=== PATIENT | male | born 1985 | race Caucasian/White ===

== ENCOUNTER 2021-05-12 12:39 | Observation (INO) | payer SELFPAY ==
[2021-05-12] MEDS ORDERED: Sodium Chloride 0.9% 10 ML Syringe FLUSH PRN (12:43)
[2021-05-12] MEDS ORDERED: Sodium Chloride 0.9% 1,000 ML IV SCH (12:45)
[2021-05-12] MEDS ORDERED: MVI, Adult with Vitamin K 10 ML, Thiamine 100 MG, Folic Acid 1 MG, Magnesium Sulfate 3 ... IV SCH ×5 (12:45)
--- NOTE | 2021-05-12 13:20 | EDM.PDOCBH ---
ED HPI GENERAL MEDICAL PROBLEM - General Chief Complaint: Drug or Alcohol Abuse Stated Complaint: ETOH INTOXICATION Time Seen by Provider: 05/12/21 12:45 Source of Information: Reports: Patient, EMS, EMS Notes Reviewed, RN Notes Reviewed History Limitations: Reports: No Limitations - History of Present Illness INITIAL COMMENTS - FREE TEXT/NARRATIVE: This patient presents to the emergency department via EMS for intoxication. He states he has been drinking most of the last 15 years on a daily basis. 3 weeks ago he quit for 4 days and has been drinking all day every day since that time. He has been going through about 1.5 L of vodka per day. He states he woke up this morning and felt like he needed help and does not want to live the way he has been so called for help through 911. On arrival to the emergency department he is disheveled, unkempt, and quite intoxicated although alert and oriented. His speech is clear. He denies other concerns or complaints. He denies other drug ingestions. He denies any suicidal attempts. Bilateral Abdominal Pain Score (Numeric/FACES): 3 - Related Data Allergies Allergy/AdvReac Type Severity Reaction Status Date / Time No Known Allergies Allergy Verified 01/30/21 11:54 Social & Family History - Alcohol Use Days Per Week of Alcohol Use: 7 Number of Drinks Per Day: 10 Total Drinks Per Week: 70 - Recreational Drug Use Recreational Drug Use: Yes Recreational Drug Type: Reports: Marijuana/Hashish Recreational Drug Use Frequency: Daily ED ROS GENERAL - Review of Systems Review Of Systems: See Below Constitutional: Reports: Decreased Appetite. Denies: Fever, Chills, Malaise, Weakness, Fatigue HEENT: Denies: Ear Pain, Eye Pain, Rhinitis, Throat Pain Respiratory: Denies: Shortness of Breath, Cough Cardiovascular: Reports: Palpitations. Denies: Chest Pain, Dyspnea on Exertion, Lightheadedness GI/Abdominal: Reports: Decreased Appetite. Denies: Abdominal Pain, Diarrhea, Nausea, Vomiting Musculoskeletal: Reports: No Symptoms Skin: Reports: No Symptoms Neurological: Reports: Tremors. Denies: Trouble Speaking, Gait Disturbance Psychiatric: Reports: Depression ED EXAM, BEHAVIORAL HEALTH - Physical Exam Exam: See Below Exam Limited By: Intoxication General Appearance: Alert, Anxious, Mild Distress Eye Exam: Bilateral Eye: Nystagmus, PERRL Ears: Normal External Exam Nose: Normal Inspection Throat/Mouth: Normal Inspection Head: Atraumatic, Normocephalic Neck: Normal Inspection, Full Range of Motion Respiratory/Chest: No Respiratory Distress, Lungs Clear, Normal Breath Sounds, No Accessory Muscle Use Cardiovascular: Regular Rate, Rhythm GI/Abdominal: Soft, Non-Tender, No Organomegaly, No Distention, Abnormal Bowel Sounds (Hypoactive in all quadrants) Extremities: Normal Inspection. No: Pedal Edema Neurological: Alert, Oriented x 3, Abnormal Gait, Opens Eyes to Commands Psychiatric: Alert, Oriented, Depressed Mood, Flat Affect Skin Exam: Warm, Dry, Intact, No rash, Other (Gold complexion) COURSE, BEHAVIORAL HEALTH COMP - Course Vital Signs: Last Vital Signs Temp 37.5 C 05/12/21 12:53 Pulse 106 H 05/12/21 12:53 Resp 16 05/12/21 12:53 BP 146/103 H 05/12/21 12:53 Pulse Ox 96 05/12/21 14:42 Orders, Labs, Meds: Active Orders 24 hr Category Date Time Status MVI, Adult with Vitamin K [Infuvite Adult] 10 ml Med 05/12/21 12:45 Active Thiamine [Vitamin B-1] 100 mg Folic Acid 1 mg Magnesium Sulfate [Magnesium Sulfate 50%] 3 gm Sodium Chloride 0.9% [Normal Saline] 1,000 ml IV ASDIRECTED Sodium Chloride 0.9% [Normal Saline] 1,000 ml Med 05/12/21 12:45 Active IV ASDIRECTED Sodium Chloride 0.9% [Saline Flush] Med 05/12/21 12:43 Active 10 ml FLUSH ASDIRECTED PRN Saline Lock Insert [OM.PC] Routine Oth 05/12/21 12:43 Ordered Medication Orders Acetaminophen (Acetaminophen 325 Mg Tab) 650 mg PO Q4H PRN PRN Reason: Pain (Mild 1-3)/fever Sodium Chloride (Normal Saline) 1,000 mls @ 999 mls/hr IV ASDIRECTED VERONIKA Last Admin: 05/12/21 12:49 Dose: 999 mls/hr Documented by: LIBAN Multivitamins/Minerals 10 ml/Thiamine HCl 100 mg/ Folic Acid 1 mg/ Magnesium Sulfate 3 gm/ Sodium Chloride 1,017.2 mls @ 999 mls/hr IV ASDIRECTED VERONIKA Last Admin: 05/12/21 14:05 Dose: 999 mls/hr Documented by: LIBAN Lorazepam (Lorazepam 2 Mg/Ml Sdv) 2 mg IVPUSH Q4H PRN PRN Reason: Withdrawal Symptoms Last Admin: 05/12/21 15:09 Dose: 2 mg Documented by: LIBAN Lorazepam (Lorazepam 2 Mg/Ml Sdv) 1 mg IV Q2H PRN PRN Reason: Nausea/Vomiting Ondansetron HCl (Ondansetron 4 Mg/2 Ml Sdv) 4 mg IVPUSH Q4H PRN PRN Reason: Nausea/Vomiting Last Admin: 05/12/21 15:04 Dose: 4 mg Documented by: LIBAN Ondansetron HCl (Ondansetron 4 Mg/2 Ml Sdv) 4 mg IV Q4H PRN PRN Reason: Nausea/Vomiting Sodium Chloride (Sodium Chloride 0.9% 10 Ml Syringe) 10 ml FLUSH ASDIRECTED PRN PRN Reason: Keep Vein Open Laboratory Tests 05/12/21 05/12/21 05/12/21 Range/Units 12:43 12:45 12:45 WBC 5.7 (4.0-11.0) K/uL RBC 4.72 (4.50-6.50) M/uL Hgb 15.7 (13.0-18.0) g/dL Hct 44.6 (40.0-54.0) % MCV 95 (76-96) fL MCH 33.3 H (27.0-32.0) pg MCHC 35.2 H (31.0-35.0) g/dL RDW 14.7 (11.0-16.0) % Plt Count 197 (150-400) K/uL MPV 9.1 (6.0-10.0) fL Neut % (Auto) 42.4 L (45.0-70.0) % Lymph % (Auto) 46.7 H (20.0-40.0) % [place] % (Auto) 8.9 (3.0-10.0) % Eos % (Auto) 0.4 L (1.0-5.0) % Baso % (Auto) 1.6 H (0.0-0.5) % Neut # (Auto) 2.42 (2.00-7.50) K/uL Lymph # (Auto) 2.66 (1.50-4.00) K/uL [place] # (Auto) 0.51 (0.20-0.80) K/uL Eos # (Auto) 0.02 L (0.04-0.40) K/uL Baso # (Auto) 0.09 (0.02-0.10) K/uL Sodium 143 (136-145) mmol/L Potassium 2.9 L* (3.5-5.1) mmol/L Chloride 99 (98-107) mmol/L Carbon Dioxide 26.8 (21.0-32.0) mmol/L Anion Gap 20.1 H (5.0-15.0) mmol/L BUN 4 L (8-26) mg/dL Creatinine 0.92 (0.70-1.30) mg/dL Est Cr Clr Drug Dosing 119.36 mL/min Estimated GFR (MDRD) > 60 (>60) MLS/MIN BUN/Creatinine Ratio 4.3 L (6-25) Glucose 143 H (74-100) mg/dL Calcium 8.6 (8.5-10.1) mg/dL Total Bilirubin 1.4 H (0.0-1.0) mg/dL AST 62 H (15-37) U/L ALT 54 (12-78) U/L Alkaline Phosphatase 68 (46-116) U/L Total Protein 8.0 (6.4-8.2) g/dL Albumin 4.1 (3.4-5.0) g/dL Globulin 3.9 (2.2-4.2) g/dL Albumin/Globulin Ratio 1.1 (0.8-2.0) Lipase 403 H (73-393) U/L Ethyl Alcohol 403.0 H* (<3.0) mg/dL SARS-CoV-2 RNA (PER) (NEGATIVE) 05/12/21 Range/Units 12:50 WBC (4.0-11.0) K/uL RBC (4.50-6.50) M/uL Hgb (13.0-18.0) g/dL Hct (40.0-54.0) % MCV (76-96) fL MCH (27.0-32.0) pg MCHC (31.0-35.0) g/dL RDW (11.0-16.0) % Plt Count (150-400) K/uL MPV (6.0-10.0) fL Neut % (Auto) (45.0-70.0) % Lymph % (Auto) (20.0-40.0) % [place] % (Auto) (3.0-10.0) % Eos % (Auto) (1.0-5.0) % Baso % (Auto) (0.0-0.5) % Neut # (Auto) (2.00-7.50) K/uL Lymph # (Auto) (1.50-4.00) K/uL [place] # (Auto) (0.20-0.80) K/uL Eos # (Auto) (0.04-0.40) K/uL Baso # (Auto) (0.02-0.10) K/uL Sodium (136-145) mmol/L Potassium (3.5-5.1) mmol/L Chloride (98-107) mmol/L Carbon Dioxide (21.0-32.0) mmol/L Anion Gap (5.0-15.0) mmol/L BUN (8-26) mg/dL Creatinine (0.70-1.30) mg/dL Est Cr Clr Drug Dosing mL/min Estimated GFR (MDRD) (>60) MLS/MIN BUN/Creatinine Ratio (6-25) Glucose (74-100) mg/dL Calcium (8.5-10.1) mg/dL Total Bilirubin (0.0-1.0) mg/dL AST (15-37) U/L ALT (12-78) U/L Alkaline Phosphatase (46-116) U/L Total Protein (6.4-8.2) g/dL Albumin (3.4-5.0) g/dL Globulin (2.2-4.2) g/dL Albumin/Globulin Ratio (0.8-2.0) Lipase (73-393) U/L Ethyl Alcohol (<3.0) mg/dL SARS-CoV-2 RNA (PER) Negative (NEGATIVE) Medications Generic Name Dose Route Start Last Admin Trade Name Freq PRN Reason Stop Dose Admin Acetaminophen 650 mg 05/12/21 14:41 Acetaminophen 325 Mg Tab PO Q4H PRN Pain (Mild 1-3)/fever Sodium Chloride 1,000 mls @ 999 mls/hr 12/07/21 12:45 05/12/21 12:49 Normal Saline IV 999 mls/hr ASDIRECTED VERONIKA Administration Multivitamins/Minerals 10 ml/ 1,017.2 mls @ 999 mls/hr 05/12/21 12:45 05/12/21 14:05 Thiamine HCl 100 mg/ Folic IV 999 mls/hr Acid 1 mg/ Magnesium Sulfate 3 ASDIRECTED VERONIKA Administration gm/ Sodium Chloride Lorazepam 2 mg 05/12/21 14:33 05/12/21 15:09 Lorazepam 2 Mg/Ml Sdv IVPUSH 2 mg Q4H PRN Administration Withdrawal Symptoms Lorazepam 1 mg 05/12/21 14:41 Lorazepam 2 Mg/Ml Sdv IV Q2H PRN Nausea/Vomiting Ondansetron HCl 4 mg 05/12/21 14:34 05/12/21 15:04 Ondansetron 4 Mg/2 Ml Sdv IVPUSH 4 mg Q4H PRN Administration Nausea/Vomiting Ondansetron HCl 4 mg 05/12/21 14:41 Ondansetron 4 Mg/2 Ml Sdv IV Q4H PRN Nausea/Vomiting Sodium Chloride 10 ml 05/12/21 12:43 Sodium Chloride 0.9% 10 Ml Syringe FLUSH ASDIRECTED PRN Keep Vein Open Discontinued Medications Generic Name Dose Route Start Last Admin Trade Name Freq PRN Reason Stop Dose Admin Potassium Chloride 40 meq 05/12/21 13:28 05/12/21 13:53 Potassium Chloride 20 Meq Tab.Er PO 05/12/21 13:29 40 meq ONETIME ONE Administration Departure - Departure Time of Disposition: 13:00 Disposition: DC/Tfer to Hospice - Home 50 Condition: Fair Clinical Impression: Alcohol withdrawal, Acute alcohol intoxication - Discharge Information Sepsis Event Note (ED) - Evaluation Sepsis Screening Result: No Definite Risk - Focused Exam Vital Signs: Vital Signs Temp Pulse Resp BP Pulse Ox 05/12/21 12:53 37.5 C 106 H 16 146/103 H 98 - My Orders Last 24 Hours: My Active Orders 05/12/21 12:43 Sodium Chloride 0.9% [Saline Flush] 10 ml FLUSH ASDIRECTED PRN Saline Lock Insert [OM.PC] Routine 05/12/21 12:45 MVI, Adult with Vitamin K [Infuvite Adult] 10 ml Thiamine [Vitamin B-1] 100 mg Folic Acid 1 mg Magnesium Sulfate [Magnesium Sulfate 50%] 3 gm Sodium Chloride 0.9% [Normal Saline] 1,000 ml IV ASDIRECTED Sodium Chloride 0.9% [Normal Saline] 1,000 ml IV ASDIRECTED - Assessment/Plan Last 24 Hours: My Active Orders 05/12/21 12:43 Sodium Chloride 0.9% [Saline Flush] 10 ml FLUSH ASDIRECTED PRN Saline Lock Insert [OM.PC] Routine 05/12/21 12:45 MVI, Adult with Vitamin K [Infuvite Adult] 10 ml Thiamine [Vitamin B-1] 100 mg Folic Acid 1 mg Magnesium Sulfate [Magnesium Sulfate 50%] 3 gm Sodium Chloride 0.9% [Normal Saline] 1,000 ml IV ASDIRECTED Sodium Chloride 0.9% [Normal Saline] 1,000 ml IV ASDIRECTED
[2021-05-12] MEDS ORDERED: Potassium Chloride 20 MEQ Tab.ER PO ONE (13:28)
[2021-05-12] MEDS ORDERED: Acetaminophen 325 MG Tab PO PRN (14:41)
[2021-05-12] MEDS ORDERED: LORazepam 2 MG/ML SDV IV PRN (14:41)
[2021-05-12] MEDS ORDERED: Ondansetron 4 MG/2 ML SDV IV PRN (14:41)
[2021-05-12] MEDS: Ondansetron 4 MG/2 ML SDV IVPUSH PRN (15:04)
[2021-05-12] MEDS: LORazepam 2 MG/ML SDV IVPUSH PRN ×2 (15:09→20:10)
--- NOTE | 2021-05-12 19:02 | PCM.HP.2 ---
H&P History of Present Illness - General Date of Service: 05/12/21 Admit Problem/Dx: Admission Diagnosis/Problem Admission Diagnosis/Problem Alcohol withdrawal syndrome Source of Information: Patient, RN Notes Reviewed History Limitations: Reports: No Limitations - History of Present Illness Initial Comments - Free Text/Narative: This patient was admitted from the ER for alcohol intoxication and potential for acute withdrawal. His blood alcohol in the ED was 0.403 he does have a history of having some issues with withdrawal. He does have a low potassium of 2.9 and was treated with oral potassium for this. Patient states he wants to stop drinking and is interested in learning about treatment options. This can be discussed with him tomorrow. He has been started on Ativan and Zofran as well as IV fluids to mitigate the potential for withdrawal symptoms. Bilateral Abdominal Pain Score (Numeric/FACES): 3 - Related Data Allergies/Adverse Reactions: Allergies Allergy/AdvReac Type Severity Reaction Status Date / Time No Known Allergies Allergy Verified 01/30/21 11:54 Home Medications: Home Meds NK [No Known Home Meds] 05/12/21 [History] Past Medical History Psychiatric History: Reports: Depression - Infectious Disease History Infectious Disease History: Reports: None Social & Family History - Family History Family Medical History: No Pertinent Family History - Tobacco Use Tobacco Use Status *Q: Never Tobacco User - Caffeine Use Caffeine Use: Reports: Soda - Alcohol Use Days Per Week of Alcohol Use: 7 Number of Drinks Per Day: 15 Total Drinks Per Week: 105 Date of Last Drink: 05/12/21 Time of Last Drink: 12:30 - Recreational Drug Use Recreational Drug Use: Yes Drug Use in Last 12 Months: Yes Recreational Drug Type: Reports: Marijuana/Hashish Other Recreational Drug Type: would use hourly if he could Recreational Drug Use Frequency: Daily H&P Review of Systems - Review of Systems: Review Of Systems: See Below General: Reports: Decreased Appetite. Denies: Fever, Weakness, Fatigue HEENT: Reports: No Symptoms Pulmonary: Denies: Shortness of Breath, Cough Cardiovascular: Denies: Chest Pain, Palpitations Gastrointestinal: Denies: Abdominal Pain, Diarrhea, Decreased Appetite, Nausea, Vomiting Musculoskeletal: Reports: No Symptoms Skin: Reports: No Symptoms Psychiatric: Reports: No Symptoms Neurological: Reports: No Symptoms (He got the banana bag a while ago) Exam - Exam Exam: See Below - Vital Signs Vital Signs: Last Vital Signs Temp 37.2 C 05/12/21 16:00 Pulse 102 H 05/12/21 16:00 Resp 18 05/12/21 16:00 BP 143/99 H 05/12/21 16:00 Pulse Ox 98 05/12/21 16:00 Weight: 108.046 kg - Exam Quality Assessment: No: Supplemental Oxygen General: Alert, Oriented, Mild Distress HEENT: PERRLA, Conjunctiva Clear, EACs Clear, EOMI, Mucosa Moist & [place], Nares Patent, Posterior Pharynx Clear, Pupils Equal, Pupils Reactive Neck: Supple, Trachea Midline Lungs: Clear to Auscultation, Normal Respiratory Effort Cardiovascular: Regular Rate, Regular Rhythm GI/Abdominal Exam: Normal Bowel Sounds, Soft, Non-Tender, No Organomegaly, No Distention Extremities: Normal Capillary Refill Skin: Warm, Dry, Intact Neurological: Cranial Nerves Intact, Normal Speech Neuro Extensive - Mental Status: Alert, Oriented x3 Psychiatric: Alert, Depressed - Patient Data Lab Results Last 24 hrs: Laboratory Results - last 24 hr 05/12/21 05/12/21 05/12/21 Range/Units 12:43 12:45 12:45 WBC 5.7 (4.0-11.0) K/uL RBC 4.72 (4.50-6.50) M/uL Hgb 15.7 (13.0-18.0) g/dL Hct 44.6 (40.0-54.0) % MCV 95 (76-96) fL MCH 33.3 H (27.0-32.0) pg MCHC 35.2 H (31.0-35.0) g/dL RDW 14.7 (11.0-16.0) % Plt Count 197 (150-400) K/uL MPV 9.1 (6.0-10.0) fL Neut % (Auto) 42.4 L (45.0-70.0) % Lymph % (Auto) 46.7 H (20.0-40.0) % [place] % (Auto) 8.9 (3.0-10.0) % Eos % (Auto) 0.4 L (1.0-5.0) % Baso % (Auto) 1.6 H (0.0-0.5) % Neut # (Auto) 2.42 (2.00-7.50) K/uL Lymph # (Auto) 2.66 (1.50-4.00) K/uL [place] # (Auto) 0.51 (0.20-0.80) K/uL Eos # (Auto) 0.02 L (0.04-0.40) K/uL Baso # (Auto) 0.09 (0.02-0.10) K/uL Sodium 143 (136-145) mmol/L Potassium 2.9 L* (3.5-5.1) mmol/L Chloride 99 (98-107) mmol/L Carbon Dioxide 26.8 (21.0-32.0) mmol/L Anion Gap 20.1 H (5.0-15.0) mmol/L BUN 4 L (8-26) mg/dL Creatinine 0.92 (0.70-1.30) mg/dL Est Cr Clr Drug Dosing 119.36 mL/min Estimated GFR (MDRD) > 60 (>60) MLS/MIN BUN/Creatinine Ratio 4.3 L (6-25) Glucose 143 H (74-100) mg/dL Calcium 8.6 (8.5-10.1) mg/dL Total Bilirubin 1.4 H (0.0-1.0) mg/dL AST 62 H (15-37) U/L ALT 54 (12-78) U/L Alkaline Phosphatase 68 (46-116) U/L Total Protein 8.0 (6.4-8.2) g/dL Albumin 4.1 (3.4-5.0) g/dL Globulin 3.9 (2.2-4.2) g/dL Albumin/Globulin Ratio 1.1 (0.8-2.0) Lipase 403 H (73-393) U/L Urine Color Urine Appearance (CLEAR) Urine pH (5.0-8.0) Ur Specific [place] (1.003-1.030) Urine Protein (NEGATIVE) mg/dL Urine Glucose (UA) (NEGATIVE) mg/dL Urine Ketones (NEGATIVE) mg/dL Urine Occult Blood (NEGATIVE) Urine Nitrite (NEGATIVE) Urine Bilirubin (NEGATIVE) Urine Urobilinogen (0.2-1.0) E.U./dL Ur Leukocyte Esterase (NEGATIVE) Urine Opiates Screen (NEGATIVE) Ur Oxycodone Screen (NEGATIVE) Urine Methadone Screen (NEGATIVE) Ur Barbiturates Screen (NEGATIVE) Ur Tricyclics Screen (NEGATIVE) Ur Phencyclidine Scrn (NEGATIVE) Ur Amphetamine Screen (NEGATIVE) U Methamphetamines Scrn (NEGATIVE) Urine MDMA Screen (NEGATIVE) U Benzodiazepines Scrn (NEGATIVE) U Cocaine Metab Screen (NEGATIVE) U Marijuana (THC) Screen (NEGATIVE) Ethyl Alcohol 403.0 H* (<3.0) mg/dL SARS-CoV-2 RNA (PER) (NEGATIVE) 05/12/21 05/12/21 05/12/21 Range/Units 12:50 15:00 15:18 WBC (4.0-11.0) K/uL RBC (4.50-6.50) M/uL Hgb (13.0-18.0) g/dL Hct (40.0-54.0) % MCV (76-96) fL MCH (27.0-32.0) pg MCHC (31.0-35.0) g/dL RDW (11.0-16.0) % Plt Count (150-400) K/uL MPV (6.0-10.0) fL Neut % (Auto) (45.0-70.0) % Lymph % (Auto) (20.0-40.0) % [place] % (Auto) (3.0-10.0) % Eos % (Auto) (1.0-5.0) % Baso % (Auto) (0.0-0.5) % Neut # (Auto) (2.00-7.50) K/uL Lymph # (Auto) (1.50-4.00) K/uL [place] # (Auto) (0.20-0.80) K/uL Eos # (Auto) (0.04-0.40) K/uL Baso # (Auto) (0.02-0.10) K/uL Sodium (136-145) mmol/L Potassium (3.5-5.1) mmol/L Chloride (98-107) mmol/L Carbon Dioxide (21.0-32.0) mmol/L Anion Gap (5.0-15.0) mmol/L BUN (8-26) mg/dL Creatinine (0.70-1.30) mg/dL Est Cr Clr Drug Dosing mL/min Estimated GFR (MDRD) (>60) MLS/MIN BUN/Creatinine Ratio (6-25) Glucose (74-100) mg/dL Calcium (8.5-10.1) mg/dL Total Bilirubin (0.0-1.0) mg/dL AST (15-37) U/L ALT (12-78) U/L Alkaline Phosphatase (46-116) U/L Total Protein (6.4-8.2) g/dL Albumin (3.4-5.0) g/dL Globulin (2.2-4.2) g/dL Albumin/Globulin Ratio (0.8-2.0) Lipase (73-393) U/L Urine Color Yellow Urine Appearance Clear (CLEAR) Urine pH 8.5 H (5.0-8.0) Ur Specific [place] 1.020 (1.003-1.030) Urine Protein Negative (NEGATIVE) mg/dL Urine Glucose (UA) Negative (NEGATIVE) mg/dL Urine Ketones Negative (NEGATIVE) mg/dL Urine Occult Blood Negative (NEGATIVE) Urine Nitrite Negative (NEGATIVE) Urine Bilirubin Negative (NEGATIVE) Urine Urobilinogen 1.0 (0.2-1.0) E.U./dL Ur Leukocyte Esterase Negative (NEGATIVE) Urine Opiates Screen Negative (NEGATIVE) Ur Oxycodone Screen Negative (NEGATIVE) Urine Methadone Screen Negative (NEGATIVE) Ur Barbiturates Screen Negative (NEGATIVE) Ur Tricyclics Screen Negative (NEGATIVE) Ur Phencyclidine Scrn Negative (NEGATIVE) Ur Amphetamine Screen Negative (NEGATIVE) U Methamphetamines Scrn Negative (NEGATIVE) Urine MDMA Screen Negative (NEGATIVE) U Benzodiazepines Scrn Negative (NEGATIVE) U Cocaine Metab Screen Negative (NEGATIVE) U Marijuana (THC) Screen Positive H (NEGATIVE) Ethyl Alcohol (<3.0) mg/dL SARS-CoV-2 RNA (PER) Negative (NEGATIVE) Result Diagrams: 05/12/21 12:43 05/12/21 12:45 Sepsis Event Note - Evaluation Sepsis Screening Result: No Definite Risk - Focused Exam Vital Signs: Vital Signs Temp Pulse Resp BP Pulse Ox Pulse Ox 05/12/21 16:00 37.2 C 102 H 18 143/99 H 98 05/12/21 14:42 96 05/12/21 14:41 96 05/12/21 12:53 37.5 C 106 H 16 146/103 H 98 - Problem List (1) Acute alcohol intoxication SNOMED Code(s): 9690464705 ICD Code: F10.929 - ALCOHOL USE, UNSPECIFIED WITH INTOXICATION, UNSPECIFIED Status: Acute Current Visit: Yes (2) Alcohol withdrawal SNOMED Code(s): 623892671 ICD Code: F10.239 - ALCOHOL DEPENDENCE WITH WITHDRAWAL, UNSPECIFIED Status: Acute Current Visit: Yes Problem List Initiated/Reviewed/Updated: Yes Orders Last 24hrs: Active Orders 24 hr Category Date Time Status Admission Status [Patient Status] [ADT] Routine ADT 05/12/21 14:32 Active Patient Status [ADT] Routine ADT 05/12/21 14:41 Active Height and Weight [RC] UPON Care 05/12/21 14:41 Active Oxygen Therapy [RC] PRN Care 05/12/21 14:41 Active Pulse Oximetry [RC] PRN Care 05/12/21 14:42 Active VTE/DVT Education [RC] Per Unit Routine Care 05/12/21 14:41 Active Vital Signs [RC] 00,04,08,12,16,20 Care 05/12/21 14:41 Active Consult to Case Management/Parking Ramp Attendant [CONS] Cons 05/12/21 14:41 Active Routine Regular Diet [DIET] Diet 05/12/21 Dinner Ordered BASIC METABOLIC PANEL,BMP [CHEM] AM Lab 05/13/21 05:11 Ordered CULTURE MRSA SURVEY [RM] Routine Lab 05/12/21 15:54 Received Acetaminophen [TylenoL] Med 05/12/21 14:41 Active 650 mg PO Q4H PRN LORazepam [Ativan] Med 05/12/21 14:41 Active 1 mg IV Q2H PRN LORazepam [Ativan] Med 05/12/21 14:33 Active 2 mg IVPUSH Q4H PRN MVI, Adult with Vitamin K [Infuvite Adult] 10 ml Med 05/12/21 12:45 Active Thiamine [Vitamin B-1] 100 mg Folic Acid 1 mg Magnesium Sulfate [Magnesium Sulfate 50%] 3 gm Sodium Chloride 0.9% [Normal Saline] 1,000 ml IV ASDIRECTED Ondansetron [Zofran] Med 05/12/21 14:41 Active 4 mg IV Q4H PRN Ondansetron [Zofran] Med 05/12/21 14:34 Active 4 mg IVPUSH Q4H PRN Sodium Chloride 0.9% [Normal Saline] 1,000 ml Med 05/12/21 12:45 Active IV ASDIRECTED Sodium Chloride 0.9% [Saline Flush] Med 05/12/21 12:43 Active 10 ml FLUSH ASDIRECTED PRN Saline Lock Insert [OM.PC] Routine Oth 05/12/21 12:43 Ordered Resuscitation Status Routine Resus Stat 05/12/21 14:41 Ordered Medication Orders Acetaminophen (Acetaminophen 325 Mg Tab) 650 mg PO Q4H PRN PRN Reason: Pain (Mild 1-3)/fever Sodium Chloride (Normal Saline) 1,000 mls @ 999 mls/hr IV ASDIRECTED VERONIKA Last Admin: 05/12/21 12:49 Dose: 999 mls/hr Documented by: LIBAN Multivitamins/Minerals 10 ml/Thiamine HCl 100 mg/ Folic Acid 1 mg/ Magnesium Sulfate 3 gm/ Sodium Chloride 1,017.2 mls @ 999 mls/hr IV ASDIRECTED [facility] Last Admin: 05/12/21 14:05 Dose: 999 mls/hr Documented by: LIBAN Lorazepam (Lorazepam 2 Mg/Ml Sdv) 2 mg IVPUSH Q4H PRN PRN Reason: Withdrawal Symptoms Last Admin: 05/12/21 15:09 Dose: 2 mg Documented by: LIBAN Lorazepam (Lorazepam 2 Mg/Ml Sdv) 1 mg IV Q2H PRN PRN Reason: Nausea/Vomiting Ondansetron HCl (Ondansetron 4 Mg/2 Ml Sdv) 4 mg IVPUSH Q4H PRN PRN Reason: Nausea/Vomiting Last Admin: 05/12/21 15:04 Dose: 4 mg Documented by: LIBAN Ondansetron HCl (Ondansetron 4 Mg/2 Ml Sdv) 4 mg IV Q4H PRN PRN Reason: Nausea/Vomiting Sodium Chloride (Sodium Chloride 0.9% 10 Ml Syringe) 10 ml FLUSH ASDIRECTED PRN PRN Reason: Keep Vein Open Assessment/Plan Comment:: Acute intoxication Maintain with IV fluids and rest. Withdrawal potential Given this patient's use of 1.5 L of vodka per day I am concerned about his potential for withdrawal syndrome. He was started on Ativan and Zofran as well as IV fluids to decrease the potential for complications. - Mortality Measure Prognosis:: Good
[2021-05-12] MEDS ORDERED: Zolpidem 5 MG Tab PO PRN (20:10)
[2021-05-13] MEDS: Ondansetron 4 MG/2 ML SDV IVPUSH PRN (08:20)
[2021-05-13] MEDS: LORazepam 2 MG/ML SDV IVPUSH PRN ×3 (08:21→12:05)
[2021-05-13] MEDS ORDERED: Potassium Chloride 20 MEQ Tab.ER PO ONE (13:45)
--- NOTE | 2021-05-13 14:52 | PCM.PN ---
- General Info Date of Service: 05/13/21 Admission Dx/Problem (Free Text): Admission Diagnosis/Problem Admission Diagnosis/Problem Alcohol withdrawal syndrome Subjective Update: Patient continues to have some intermittent nausea but no vomiting. Has been able to eat some solids and drink fluids. Continues to have some mild hand tremors and nystagmus; however, this is significantly decreased in the past 24 hours. Patient states he has been feeling depressed and thinks he needs some medication for that. He also states that he is interested in going to treatment for alcohol abuse. He did go through a 28-day treatment program a couple of years ago but started drinking immediately again when it was completed. 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 His mother and 2 sisters live in [place] and he states they are supportive of him. Functional Status: Reports: Pain Controlled, Tolerating Diet, Ambulating, Urinating - Review of Systems General: Reports: No Symptoms HEENT: Reports: No Symptoms Pulmonary: Denies: Shortness of Breath, Cough Cardiovascular: Denies: Chest Pain, Palpitations Gastrointestinal: Reports: Decreased Appetite, Nausea. Denies: Abdominal Pain, Diarrhea, Vomiting Musculoskeletal: Reports: No Symptoms Skin: Reports: No Symptoms Neurological: Reports: No Symptoms - Patient Data Vitals - Most Recent: Last Vital Signs Temp 37.3 C 05/13/21 11:28 Pulse 90 05/13/21 11:28 Resp 18 05/13/21 11:28 BP 146/102 H 05/13/21 11:28 Pulse Ox 96 05/13/21 11:28 Weight - Most Recent: 108.046 kg Lab Results Last 24 Hours: Laboratory Results - last 24 hr 05/12/21 05/12/21 05/13/21 Range/Units 15:00 15:18 08:25 Sodium 138 (136-145) mmol/L Potassium 3.3 L (3.5-5.1) mmol/L Chloride 96 L (98-107) mmol/L Carbon Dioxide 29.9 (21.0-32.0) mmol/L Anion Gap 15.4 H (5.0-15.0) mmol/L BUN 4 L (8-26) mg/dL Creatinine 0.68 L (0.70-1.30) mg/dL Est Cr Clr Drug Dosing 161.49 mL/min Estimated GFR (MDRD) > 60 (>60) MLS/MIN BUN/Creatinine Ratio 5.9 L (6-25) Glucose 105 H (74-100) mg/dL Calcium Not Reportable Urine Color Yellow Urine Appearance Clear (CLEAR) Urine pH 8.5 H (5.0-8.0) Ur Specific [place] 1.020 (1.003-1.030) Urine Protein Negative (NEGATIVE) mg/dL Urine Glucose (UA) Negative (NEGATIVE) mg/dL Urine Ketones Negative (NEGATIVE) mg/dL Urine Occult Blood Negative (NEGATIVE) Urine Nitrite Negative (NEGATIVE) Urine Bilirubin Negative (NEGATIVE) Urine Urobilinogen 1.0 (0.2-1.0) E.U./dL Ur Leukocyte Esterase Negative (NEGATIVE) Urine Opiates Screen Negative (NEGATIVE) Ur Oxycodone Screen Negative (NEGATIVE) Urine Methadone Screen Negative (NEGATIVE) Ur Barbiturates Screen Negative (NEGATIVE) Ur Tricyclics Screen Negative (NEGATIVE) Ur Phencyclidine Scrn Negative (NEGATIVE) Ur Amphetamine Screen Negative (NEGATIVE) U Methamphetamines Scrn Negative (NEGATIVE) Urine MDMA Screen Negative (NEGATIVE) U Benzodiazepines Scrn Negative (NEGATIVE) U Cocaine Metab Screen Negative (NEGATIVE) U Marijuana (THC) Screen Positive H (NEGATIVE) Med Orders - Current: Current Medications Acetaminophen (Acetaminophen 325 Mg Tab) 650 mg PO Q4H PRN PRN Reason: Pain (Mild 1-3)/fever Sodium Chloride (Normal Saline) 1,000 mls @ 999 mls/hr IV ASDIRECTED [facility] Last Admin: 05/12/21 12:49 Dose: 999 mls/hr Documented by: Multivitamins/Minerals 10 ml/Thiamine HCl 100 mg/ Folic Acid 1 mg/ Magnesium Sulfate 3 gm/ Sodium Chloride 1,017.2 mls @ 999 mls/hr IV ASDIRECTED [facility] Last Admin: 05/12/21 14:05 Dose: 999 mls/hr Documented by: Lorazepam (Lorazepam 2 Mg/Ml Sdv) 2 mg IVPUSH Q4H PRN PRN Reason: Withdrawal Symptoms Last Admin: 05/13/21 12:05 Dose: 2 mg Documented by: Lorazepam (Lorazepam 2 Mg/Ml Sdv) 1 mg IV Q2H PRN PRN Reason: Nausea/Vomiting Ondansetron HCl (Ondansetron 4 Mg/2 Ml Sdv) 4 mg IVPUSH Q4H PRN PRN Reason: Nausea/Vomiting Last Admin: 05/13/21 08:20 Dose: 4 mg Documented by: Ondansetron HCl (Ondansetron 4 Mg/2 Ml Sdv) 4 mg IV Q4H PRN PRN Reason: Nausea/Vomiting Sodium Chloride (Sodium Chloride 0.9% 10 Ml Syringe) 10 ml FLUSH ASDIRECTED PRN PRN Reason: Keep Vein Open Zolpidem Tartrate (Zolpidem 5 Mg Tab) 10 mg PO BEDTIME PRN PRN Reason: Sleep Last Admin: 05/12/21 23:39 Dose: 10 mg Documented by: Discontinued Medications Potassium Chloride (Potassium Chloride 20 Meq Tab.Er) 40 meq PO ONETIME ONE Stop: 05/12/21 13:29 Last Admin: 05/12/21 13:53 Dose: 40 meq Documented by: Potassium Chloride (Potassium Chloride 20 Meq Tab.Er) 40 meq PO ONETIME ONE Stop: 05/13/21 13:46 - Exam General: Alert, Oriented, Cooperative, Mild Distress HEENT: Pupils Equal, Pupils Reactive, EOMI, Mucous Membr. Moist/[place], Other (mild nystagmus). No: Scleral Icterus Neck: Supple Lungs: Clear to Auscultation, Normal Respiratory Effort Cardiovascular: Regular Rate, Regular Rhythm Skin: Warm, Dry, Intact Neurological: No New Focal Deficit Psy/Mental Status: Alert, Depressed - Patient Data Lab Results Last 24 hrs: Laboratory Results - last 24 hr 05/12/21 05/12/21 05/13/21 Range/Units 15:00 15:18 08:25 Sodium 138 (136-145) mmol/L Potassium 3.3 L (3.5-5.1) mmol/L Chloride 96 L (98-107) mmol/L Carbon Dioxide 29.9 (21.0-32.0) mmol/L Anion Gap 15.4 H (5.0-15.0) mmol/L BUN 4 L (8-26) mg/dL Creatinine 0.68 L (0.70-1.30) mg/dL Est Cr Clr Drug Dosing 161.49 mL/min Estimated GFR (MDRD) > 60 (>60) MLS/MIN BUN/Creatinine Ratio 5.9 L (6-25) Glucose 105 H (74-100) mg/dL Calcium Not Reportable Urine Color Yellow Urine Appearance Clear (CLEAR) Urine pH 8.5 H (5.0-8.0) Ur Specific [place] 1.020 (1.003-1.030) Urine Protein Negative (NEGATIVE) mg/dL Urine Glucose (UA) Negative (NEGATIVE) mg/dL Urine Ketones Negative (NEGATIVE) mg/dL Urine Occult Blood Negative (NEGATIVE) Urine Nitrite Negative (NEGATIVE) Urine Bilirubin Negative (NEGATIVE) Urine Urobilinogen 1.0 (0.2-1.0) E.U./dL Ur Leukocyte Esterase Negative (NEGATIVE) Urine Opiates Screen Negative (NEGATIVE) Ur Oxycodone Screen Negative (NEGATIVE) Urine Methadone Screen Negative (NEGATIVE) Ur Barbiturates Screen Negative (NEGATIVE) Ur Tricyclics Screen Negative (NEGATIVE) Ur Phencyclidine Scrn Negative (NEGATIVE) Ur Amphetamine Screen Negative (NEGATIVE) U Methamphetamines Scrn Negative (NEGATIVE) Urine MDMA Screen Negative (NEGATIVE) U Benzodiazepines Scrn Negative (NEGATIVE) U Cocaine Metab Screen Negative (NEGATIVE) U Marijuana (THC) Screen Positive H (NEGATIVE) Result Diagrams: 05/12/21 12:43 05/13/21 08:25 Sepsis Event Note - Evaluation Sepsis Screening Result: No Definite Risk - Focused Exam Vital Signs: Vital Signs Temp Pulse Resp BP Pulse Ox 05/13/21 11:28 37.3 C 90 18 146/102 H 96 05/13/21 08:00 36.8 C 89 18 155/107 H 95 05/13/21 04:00 37.2 C 102 H 18 159/106 H 96 - Problem List & Annotations (1) Acute alcohol intoxication SNOMED Code(s): 1730056360 Code(s): F10.929 - ALCOHOL USE, UNSPECIFIED WITH INTOXICATION, UNSPECIFIED Status: Acute Current Visit: Yes (2) Alcohol withdrawal SNOMED Code(s): 840991875 Code(s): F10.239 - ALCOHOL DEPENDENCE WITH WITHDRAWAL, UNSPECIFIED Status: Acute Current Visit: Yes Qualifiers: Complication of substance-induced condition: uncomplicated Qualified Code(s): F10.230 - Alcohol dependence with withdrawal, uncomplicated - Problem List Review Problem List Initiated/Reviewed/Updated: Yes - My Orders Last 24 Hours: My Active Orders 05/12/21 14:32 Admission Status [Patient Status] [ADT] Routine 05/12/21 14:33 LORazepam [Ativan] 2 mg IVPUSH Q4H PRN 05/12/21 14:34 Ondansetron [Zofran] 4 mg IVPUSH Q4H PRN 05/12/21 14:41 Patient Status [ADT] Routine Height and Weight [RC] UPON Oxygen Therapy [RC] PRN VTE/DVT Education [RC] Per Unit Routine Vital Signs [RC] 00,04,08,12,16,20 Consult to Case Management/Trigonometry Tutor [CONS] Routine Acetaminophen [TylenoL] 650 mg PO Q4H PRN LORazepam [Ativan] 1 mg IV Q2H PRN Ondansetron [Zofran] 4 mg IV Q4H PRN Resuscitation Status Routine 05/12/21 14:42 Pulse Oximetry [RC] PRN 05/12/21 15:54 CULTURE MRSA SURVEY [RM] Routine 05/12/21 Dinner Regular Diet [DIET] 05/12/21 20:10 Zolpidem [Ambien] 10 mg PO BEDTIME PRN 05/13/21 13:44 ETOH [ETHANOL BLOOD MEDICAL] [CHEM] Stat - Assessment Assessment:: 1) Acute Alcohol Intoxication 2) Alcohol Withdrawal - Plan Plan:: Acute intoxication Mentation clearing, appetite improving Withdrawal potential Continues to have mild nystagmus and tremors today but dramatically improved. Substance Abuse Treatment Andrew Azevedo was able to secure a bed for this patient at [facility] in [place], [place]. The patient is willing to go there today. Arrangements were made for his transfer to their facility by private vehicle. 05/12/21 Potassium = 2.9; treated with 40 mEq KCl orally COVID screen (-) Urine Drug Screen (+) for marijuana 05/13/21 Potassium = 3.3; treated with 40 mEq KCl orally SKYLAR = <.03
--- NOTE | 2021-05-13 15:11 | PCM.DCSUM1 ---
Discharge Summary - Hospital Course Free Text/Narrative:: Patient discharged from this facility; transported to [facility] in [place], [place] for continued detoxification and treatment. Diagnosis: Stroke: No - Discharge Data Discharge Date: 05/13/21 Discharge Disposition: DC/Tfer to Other 70 Condition: Good - Referral to Home Health Primary Care Physician: PCP None - Discharge Diagnosis/Problem(s) (1) Acute alcohol intoxication SNOMED Code(s): 6041255536 ICD Code: F10.929 - ALCOHOL USE, UNSPECIFIED WITH INTOXICATION, UNSPECIFIED Status: Acute Priority: High (2) Alcohol withdrawal SNOMED Code(s): 068119266 ICD Code: F10.239 - ALCOHOL DEPENDENCE WITH WITHDRAWAL, UNSPECIFIED Status: Acute Priority: High Qualifiers: Complication of substance-induced condition: uncomplicated Qualified Code(s): F10.230 - Alcohol dependence with withdrawal, uncomplicated - Patient Summary/Data Consults: Consultations 05/12/21 14:41 Consult to Case Management/Process Operator [CONS] Routine Comment: Physician Instructions: Service(s) to be Consulted: Process Operator - Discharge Plan *PRESCRIPTION DRUG MONITORING PROGRAM REVIEWED*: Not Applicable *COPY OF PRESCRIPTION DRUG MONITORING REPORT IN PATIENT LESLIE: Not Applicable Home Medications: Home Meds NK [No Known Home Meds] 05/12/21 [History] Forms: ED Department Discharge Referrals: PCP,None [Primary Care Provider] - - Discharge Summary/Plan Comment DC Time >30 min.: Yes Total # of Minutes for Discharge Time: 60 - General Info Date of Service: 05/13/21 Admission Dx/Problem (Free Text: Admission Diagnosis/Problem Admission Diagnosis/Problem Alcohol withdrawal syndrome Subjective Update: Patient continues to have some intermittent nausea but no vomiting. Has been able to eat some solids and drink fluids. Continues to have some mild hand tremors and nystagmus; however, this is significantly decreased in the past 24 hours. Patient states he has been feeling depressed and thinks he needs some medication for that. He also states that he is interested in going to treatment for alcohol abuse. He did go through a 28-day treatment program a couple of years ago but started drinking immediately again when it was completed. 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 His mother and 2 sisters live in [place] and he states they are supportive of him. Functional Status: Reports: Pain Controlled, Tolerating Diet, Ambulating, Urinating - Review of Systems General: Reports: No Symptoms HEENT: Reports: No Symptoms Pulmonary: Reports: No Symptoms Cardiovascular: Reports: No Symptoms Gastrointestinal: Reports: No Symptoms Genitourinary: Reports: No Symptoms Musculoskeletal: Reports: No Symptoms Skin: Reports: No Symptoms Neurological: Reports: No Symptoms Psychiatric: Reports: Depression - Patient Data Vitals - Most Recent: Last Vital Signs Temp 37.3 C 05/13/21 11:28 Pulse 90 05/13/21 11:28 Resp 18 05/13/21 11:28 BP 146/102 H 05/13/21 11:28 Pulse Ox 96 05/13/21 11:28 Weight - Most Recent: 108.046 kg Lab Results - Last 24 hrs: Laboratory Results - last 24 hr 05/12/21 05/12/21 05/13/21 Range/Units 15:00 15:18 08:25 Sodium 138 (136-145) mmol/L Potassium 3.3 L (3.5-5.1) mmol/L Chloride 96 L (98-107) mmol/L Carbon Dioxide 29.9 (21.0-32.0) mmol/L Anion Gap 15.4 H (5.0-15.0) mmol/L BUN 4 L (8-26) mg/dL Creatinine 0.68 L (0.70-1.30) mg/dL Est Cr Clr Drug Dosing 161.49 mL/min Estimated GFR (MDRD) > 60 (>60) MLS/MIN BUN/Creatinine Ratio 5.9 L (6-25) Glucose 105 H (74-100) mg/dL Calcium Not Reportable Urine Color Yellow Urine Appearance Clear (CLEAR) Urine pH 8.5 H (5.0-8.0) Ur Specific [place] 1.020 (1.003-1.030) Urine Protein Negative (NEGATIVE) mg/dL Urine Glucose (UA) Negative (NEGATIVE) mg/dL Urine Ketones Negative (NEGATIVE) mg/dL Urine Occult Blood Negative (NEGATIVE) Urine Nitrite Negative (NEGATIVE) Urine Bilirubin Negative (NEGATIVE) Urine Urobilinogen 1.0 (0.2-1.0) E.U./dL Ur Leukocyte Esterase Negative (NEGATIVE) Urine Opiates Screen Negative (NEGATIVE) Ur Oxycodone Screen Negative (NEGATIVE) Urine Methadone Screen Negative (NEGATIVE) Ur Barbiturates Screen Negative (NEGATIVE) Ur Tricyclics Screen Negative (NEGATIVE) Ur Phencyclidine Scrn Negative (NEGATIVE) Ur Amphetamine Screen Negative (NEGATIVE) U Methamphetamines Scrn Negative (NEGATIVE) Urine MDMA Screen Negative (NEGATIVE) U Benzodiazepines Scrn Negative (NEGATIVE) U Cocaine Metab Screen Negative (NEGATIVE) U Marijuana (THC) Screen Positive H (NEGATIVE) Ethyl Alcohol (<3.0) mg/dL 05/13/21 Range/Units 13:44 Sodium (136-145) mmol/L Potassium (3.5-5.1) mmol/L Chloride (98-107) mmol/L Carbon Dioxide (21.0-32.0) mmol/L Anion Gap (5.0-15.0) mmol/L BUN (8-26) mg/dL Creatinine (0.70-1.30) mg/dL Est Cr Clr Drug Dosing mL/min Estimated GFR (MDRD) (>60) MLS/MIN BUN/Creatinine Ratio (6-25) Glucose (74-100) mg/dL Calcium Urine Color Urine Appearance (CLEAR) Urine pH (5.0-8.0) Ur Specific [place] (1.003-1.030) Urine Protein (NEGATIVE) mg/dL Urine Glucose (UA) (NEGATIVE) mg/dL Urine Ketones (NEGATIVE) mg/dL Urine Occult Blood (NEGATIVE) Urine Nitrite (NEGATIVE) Urine Bilirubin (NEGATIVE) Urine Urobilinogen (0.2-1.0) E.U./dL Ur Leukocyte Esterase (NEGATIVE) Urine Opiates Screen (NEGATIVE) Ur Oxycodone Screen (NEGATIVE) Urine Methadone Screen (NEGATIVE) Ur Barbiturates Screen (NEGATIVE) Ur Tricyclics Screen (NEGATIVE) Ur Phencyclidine Scrn (NEGATIVE) Ur Amphetamine Screen (NEGATIVE) U Methamphetamines Scrn (NEGATIVE) Urine MDMA Screen (NEGATIVE) U Benzodiazepines Scrn (NEGATIVE) U Cocaine Metab Screen (NEGATIVE) U Marijuana (THC) Screen (NEGATIVE) Ethyl Alcohol < 3.0 (<3.0) mg/dL BG Results - Last 24 hrs: Microbiology 05/12/21 15:54 MRSA Surveillance Culture - Final Nares, Unspecified NO MRSA ISOLATED Med Orders - Current: Current Medications Acetaminophen (Acetaminophen 325 Mg Tab) 650 mg PO Q4H PRN PRN Reason: Pain (Mild 1-3)/fever Sodium Chloride (Normal Saline) 1,000 mls @ 999 mls/hr IV ASDIRECTED [facility] Last Admin: 05/12/21 12:49 Dose: 999 mls/hr Documented by: Multivitamins/Minerals 10 ml/Thiamine HCl 100 mg/ Folic Acid 1 mg/ Magnesium Sulfate 3 gm/ Sodium Chloride 1,017.2 mls @ 999 mls/hr IV ASDIRECTED [facility] Last Admin: 05/12/21 14:05 Dose: 999 mls/hr Documented by: Lorazepam (Lorazepam 2 Mg/Ml Sdv) 2 mg IVPUSH Q4H PRN PRN Reason: Withdrawal Symptoms Last Admin: 05/13/21 12:05 Dose: 2 mg Documented by: Lorazepam (Lorazepam 2 Mg/Ml Sdv) 1 mg IV Q2H PRN PRN Reason: Nausea/Vomiting Ondansetron HCl (Ondansetron 4 Mg/2 Ml Sdv) 4 mg IVPUSH Q4H PRN PRN Reason: Nausea/Vomiting Last Admin: 05/13/21 08:20 Dose: 4 mg Documented by: Ondansetron HCl (Ondansetron 4 Mg/2 Ml Sdv) 4 mg IV Q4H PRN PRN Reason: Nausea/Vomiting Sodium Chloride (Sodium Chloride 0.9% 10 Ml Syringe) 10 ml FLUSH ASDIRECTED PRN PRN Reason: Keep Vein Open Zolpidem Tartrate (Zolpidem 5 Mg Tab) 10 mg PO BEDTIME PRN PRN Reason: Sleep Last Admin: 05/12/21 23:39 Dose: 10 mg Documented by: Discontinued Medications Potassium Chloride (Potassium Chloride 20 Meq Tab.Er) 40 meq PO ONETIME ONE Stop: 05/12/21 13:29 Last Admin: 05/12/21 13:53 Dose: 40 meq Documented by: Potassium Chloride (Potassium Chloride 20 Meq Tab.Er) 40 meq PO ONETIME ONE Stop: 05/13/21 13:46 Last Admin: 05/13/21 14:52 Dose: 40 meq Documented by: - Exam General: Reports: Alert, Oriented HEENT: Reports: Pupils Equal, Pupils Reactive, EOMI, Mucous Membr. Moist/[place] Neck: Reports: Supple Lungs: Reports: Clear to Auscultation, Normal Respiratory Effort Cardiovascular: Reports: Regular Rate, Regular Rhythm Skin: Reports: Warm, Dry, Intact Neurological: Reports: No New Focal Deficit Psy/Mental Status: Reports: Alert, Depressed
== END 2021-05-13 15:30 | disposition other institution (70) ==
LOC: LB.ED 12:39 → LB.MS 14:32
PROVIDERS: ADMIT Nurse Practitioner; ATTEND Nurse Practitioner
DX: F10.229 Alcohol dependence with intoxication, unspecified (principal); F10.239 Alcohol dependence with withdrawal, unspecified; F32.A Depression, unspecified; Z20.822 Contact with and (suspected) exposure to COVID-19
CPT/HCPCS: 36415; 80048; 80053; 80307; 81003; 83690; 85025; 87635; 93005; 96365; 96375; 96376; 99285; A0425; A0429; A9270; G0378; J2060; J2405; J3411; J3475; J7030; 99217; 99220; J3490; U0002

== ENCOUNTER 2021-12-31 09:37 | Observation (INO) | payer SELFPAY ==
[2021-12-31] MEDS ORDERED: Famotidine 20 MG/2 ML SDV IVPUSH ONE (09:57)
[2021-12-31] MEDS ORDERED: Sodium Chloride 0.9% 10 ML Syringe FLUSH PRN (09:57)
[2021-12-31] MEDS ORDERED: methylPREDNISolone Sod Succ 125 MG in Sodium Chloride 0.9% 100 ML IV ONE (09:58)
[2021-12-31] MEDS ORDERED: diphenhydrAMINE 50 MG/ML SDV IVPUSH ONE (09:59)
[2021-12-31] MEDS ORDERED: methylPREDNISolone Sodium Succinate 125 MG/2 ML SDV IVPUSH ONE (10:05)
[2021-12-31] MEDS ORDERED: diphenhydrAMINE 50 MG/ML SDV ONE ×2 (10:33→12:13)
[2021-12-31] MEDS ORDERED: methylPREDNISolone Sodium Succinate 125 MG/2 ML SDV ONE (10:33)
[2021-12-31] MEDS ORDERED: Lactated Ringers 1,000 ML IV SCH (13:30)
[2021-12-31] MEDS ORDERED: Famotidine 20 MG/2 ML SDV IVPUSH SCH (14:00)
[2021-12-31] MEDS ORDERED: methylPREDNISolone Sodium Succinate 40 MG/1 ML SDV IVPUSH SCH (14:00)
[2021-12-31] MEDS ORDERED: diphenhydrAMINE 50 MG/ML SDV IVPUSH PRN (16:00)
== END 2021-12-31 17:00 | disposition home or self-care (01) ==
LOC: LB.ED 09:37 → LB.MS 12:14
PROVIDERS: ADMIT Physician Assistant; ATTEND Physician Assistant
DX: T63.441A Toxic effect of venom of bees, accidental (unintentional), initial encounter (principal); Z79.899 Other long term (current) drug therapy; Z79.52 Long term (current) use of systemic steroids; Z20.822 Contact with and (suspected) exposure to COVID-19
CPT/HCPCS: 96374; 96375; 96376; 99234; 99284-25; G0378; J1200; J2920; J2930; J3490; U0002